=== PATIENT | female | born 1955 | race African-American/Black ===

== ENCOUNTER 2020-08-24 08:09 | Inpatient (IN) | payer MEDICAID ==
[~2020-08-24] VITALS: Ht 180.3 cm; Wt 117.9 kg
--- NOTE | 2020-08-24 08:13 | Emergency Room Report ---
History of Present Illness General Chief Complaint: Dyspnea/Respdistress Source: Patient Present Illness HPI Patient is a 64-year-old female past medical history of COPD current smoker who presents to the ER complaining of shortness of breath. Patient complains of shortness of breath and cough that began last night. Patient states that this feels like her COPD exacerbation. Patient denies any fever or chills. She denies any chest pain. She denies any nausea or vomiting. Patient was brought in from home by EMS. Patient's oxygen saturation was in the mid 80s when EMS arrived. They gave her 10 mg of albuterol prior to arrival. She states that it improved her symptoms. 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 - X 1 MONTH Nursing Documentation-[facility] Past Medical History: No History, Except For Hx Asthma: Yes Hx COPD: Yes Review of Systems All Other Systems: negative except mentioned in HPI Physical Exam Vital Signs Date Time Temp Pulse Resp B/P (MAP) Pulse Ox O2 Delivery O2 Flow Rate FiO2 08/24/20 08:01 98.1 97 20 230/120 (156) 100 Simple Mask 8.0 Sp02 EP Interpretation: abnormal - Hypoxic on room air General Appearance: alert, GCS 15, non-toxic, mild distress Head: normocephalic, atraumatic Eyes: bilateral eye normal inspection, bilateral eye PERRL ENT: hearing grossly normal, normal pharynx, no angioedema, normal voice Neck: full range of motion, supple/symm/no masses Respiratory: respiratory distress, rhonchi, other - Tachypneic Cardiovascular #1: tachycardia Gastrointestinal: non tender, soft, overweight Rectal: deferred Musculoskeletal: normal inspection, normal range of motion, no calf tenderness, no lower extremity edema Neurologic: sign installer III-XII nml as tested, oriented x3 Psychiatric: no suicidal/homicidal ideation Skin: no rash Lymphatic: no adenopathy Procedures Critical Care Time Critical Care Time Total critical care time: Approximately 35 minutes. Due to a high probability of clinically significant, life threatening deterioration, the patient required my highest level of preparedness to intervene emergently and I personally spent this critical care time directly and personally managing the patient. This critical care time included obtaining a history; examining the patient; pulse oximetry; ordering and review of studies; arranging urgent treatment with development of a management plan; evaluation of patient's response to treatment; frequent reassessment; and, discussions with other providers.This critical care time was performed to assess and manage the high probability of imminent, life- threatening deterioration that could result in multi-organ failure. It was exclusive of separately billable procedures and treating other patients and teaching time. Please see MDM section and the rest of the note for further information on patient assessment and treatment. Medical Decision Making Diagnostic Impression: Primary Impression: COPD exacerbation Additional Impressions: Malignant hypertension Hypokalemia Hypocalcemia ER Course Patient's initial blood pressure was 230/120. Patient denies any history of elevated blood pressure. I gave her 10 mg of IV hydralazine. Repeat blood pressure now 155/87. Patient was tachypneic with diffuse wheezes and hypoxic. Patient has been placed on BiPAP at a rate of 26. Patient has been given IV steroids, nebulizer treatments and antibiotics. Patient is mildly hypokalemic with potassium of 3.2. 20 mEq of IV potassium chloride have been ordered. Patient is also hypocalcemic with calcium of 6.7. 1 g of IV calcium gluconate has been ordered as well. Patient will be admitted for further treatment and evaluation. EKG Diagnostic Results Troponin ordered: Yes When was troponin ordered?: Aug 24, 2020 EKG Time: 08:16 EP Interpretation: Jackie Schwarz MD Rate: normal - 92 bpm Rhythm: NSR ST Segments: no acute changes ASA given to the pt in ED: No Rhythm Strip Diag. Results Rhythm Strip Time: 08:25 EP Interpretation: yes - Jackie Schwarz MD Rate: 89 bpm Rhythm: NSR, no PVC's, no ectopy Chest X-Ray Diagnostic Results Chest X-Ray Diagnostic Results : Chest X-Ray Ordered: Yes # of Views/Limited/Complete: 1 View Indication: Shortness of Breath EP Interpretation: Yes Interpretation: no consolidation, no effusion, no pneumothorax, no acute cardiopulmonary disease Impression: No acute disease Electronically Signed by: Jackie Schwarz MD Last Vital Signs Date Time Temp Pulse Resp B/P (MAP) Pulse Ox O2 Delivery O2 Flow Rate FiO2 08/24/20 08:01 98.1 97 20 230/120 (156) 100 Simple Mask 8.0 Disposition: ADMITTED INPATIENT - SDU Condition: Critical Physician Consult: Dr. Jackson at 915am Additional Instructions: Please note that this report is being documented using Nephera technology. This can lead to erroneous entry secondary to incorrect interpretation by the dictating instrument. Jackie Schwarz M.D. Aug 24, 2020 08:12
[2020-08-24] MEDS ORDERED: Cefepime HCl 2 GM in D5W 55 ML IVPB ONE (08:15)
[2020-08-24] MEDS ORDERED: Azithromycin 500 MG in NS 275 ML IV ONE (08:15)
[2020-08-24] MEDS ORDERED: dexAMETHasone 10mg/ml Inj IV ONE ×2 (08:15→08:17)
[2020-08-24] MEDS ORDERED: Azithromycin 500mg Inj ONE (08:17)
[2020-08-24] MEDS ORDERED: Cefepime 2gm ONE (08:17)
[2020-08-24 08:30] VITALS: BP 230/120
--- NOTE | 2020-08-24 08:30 | NUR ---
ED Nurse Note: Pt was brought in by ambulance from home d/t shortness of breath since last night noted with audible wheezes, per ems, pt was satting 80% at RA, pt was placed on a mask with 8LPM satting at 100%. Pt is AOx4, cooperative to care, restless, uses accessory muscles upon breathing, with hx of asthma and COPD. pt was placed on bed and gown; hooked to school lunch monitor.
--- NOTE | 2020-08-24 08:37 | NUR ---
ED Nurse Note: RT at bedside.
[2020-08-24 08:55] LABS: ANION GAP 5 mmol/L (5-15); BLOOD UREA NITROGEN 18 mg/dL (7-18); CALCIUM 6.7 MG/DL (8.5-10.1); CARBON DIOXIDE 27 MMOL/L (21-32); CHLORIDE 112 MMOL/L (98-107); CREATININE 0.9 MG/DL (0.55-1.30); POTASSIUM 3.2 MMOL/L (3.5-5.1); SODIUM 144 MMOL/L (136-145)
--- NOTE | 2020-08-24 08:57 | NUR ---
RESPIRATORY NOTES PT placed on bipap - 15/5, 35%, BR 22 PT's SaO2 - 99% Will continue to monitor.
[2020-08-24] MEDS: Albuterol/Ipratropium 3ml neb HHN SCH ×5 (09:00→09:57)
[2020-08-24 09:05] LABS: ALANINE AMINOTRANSFERASE 7 U/L (12-78); ALBUMIN 2.5 G/DL (3.4-5.0); ALBUMIN/GLOBULIN RATIO 0.7 (1.0-2.7); ALKALINE PHOSPHATASE 82 U/L (46-116); ASPARTATE AMINO TRANSFERASE 14 U/L (15-37); BASOPHILS % (AUTO) 1.6 % (0.0-2.0); BILIRUBIN,TOTAL 0.2 MG/DL (0.2-1.0); EOSINOPHILS % (AUTO) 12.5 % (0.0-3.0); HEMATOCRIT 38.5 % (37.0-47.0); HEMOGLOBIN 12.7 G/DL (12.0-16.0); LYMPHOCYTES % (AUTO) 31.5 % (20.0-45.0); MEAN CORPUSCULAR VOLUME 84 FL (80-99); MONOCYTES % (AUTO) 8.3 % (1.0-10.0); PLATELET COUNT 162 K/UL (150-450); RED BLOOD COUNT 4.56 M/UL (4.20-5.40); RED CELL DISTRIBUTION WIDTH 18.3 % (11.6-14.8); WHITE BLOOD COUNT 6.8 K/UL (4.8-10.8)
[2020-08-24 09:12] LABS: INR 0.9 (0.9-1.1)
[2020-08-24] MEDS ORDERED: Calcium Gluconate 1gm/50ml 50 ML IVPB ONE (09:15)
[2020-08-24] MEDS ORDERED: Albuterol/Ipratropium 3ml neb ONE (09:56)
[2020-08-24] MEDS ORDERED: Albuterol/Ipratropium 3ml neb HHN PRN (10:00)
[2020-08-24] MEDS ORDERED: Morphine Sulfate 2mg/ml Inj(IV/IM USE ONLY) IVP PRN ×2 (10:00)
--- NOTE | 2020-08-24 10:21 | History and Physical ---
History of Present Illness General Date patient seen: Aug 24, 2020 Reason for Hospitalization: Dyspnea/Respdistress Present Illness HPI 64-year-old female past medical history of COPD current active smoker who presents to the ER complaining of shortness of breath. She complains of sh ortness of breath and cough that began last night. Patient states that this feels like her COPD exacerbation ( previously had it ) Patient denies any fever or chills. She denies any chest pain. She denies any nausea or vomiting. Patient was brought in from home by EMS. Patient's oxygen saturation was in the mid 80s when EMS arrived. They gave her 10 mg of albuterol prior to arrival. She states that it improved her symptoms.In the ER, she was started on Bipap, noted to be hypertensive 200 mmHg SBP and Hydralazine 10 mg IV given with response to the 150's SBP range, K 3.2 and repleted, IV dexamethasone 10 mg x 1. Admission is requested. The patient was started on Bipap 06/24 due to respiratory distress and hypoxia. Currently tolerating well. She reports having 2-3 cig per day and last COPD exacerbation 3 weeks ago was treated with a course of steroids by her PCP. She has HHN and uses Albuterol at home. Denies prior intubations due to COPD Allergies: Coded Allergies: No Known Allergies (Unverified , 08/24/20) COVID-19 Screening Contact w/high risk pt: No Experienced COVID-19 symptoms?: No Medication History Miscellaneous Medications [No Home Meds], (Reported) Patient History Healthcare decision maker Resuscitation status Advanced Directive on File Review of Systems All Other Systems: negative except mentioned in HPI Physical Exam General Appearance: WD/WN HEENT: normocephalic, atraumatic Neck: non-tender Respiratory/Chest: chest wall non-tender, respiratory distress, decreased breath sounds, expiratory wheezing, inspiratory wheezing Cardiovascular/Chest: normal rate Abdomen: soft Extremities: non-tender Skin Exam: normal pigmentation 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: 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 operator II-XII grossly normal Musculoskeletal: normal muscle bulk Last 24 Hour Vital Signs Date Time Temp Pulse Resp B/P (MAP) Pulse Ox O2 Delivery O2 Flow Rate FiO2 08/24/20 08:54 87 25 99 35 08/24/20 08:30 97 20 Simple Mask 8.0 08/24/20 08:30 98.1 20 230/120 100 Simple Mask 8.0 08/24/20 08:18 230/120 08/24/20 08:01 98.1 97 20 230/120 (156) 100 Simple Mask 8.0 Laboratory Tests Test 08/24/20 08:15 08/24/20 08:20 Arterial Blood pH 7.340 (7.350-7.450) Arterial Blood Partial Pressure CO2 49.6 mmHg (35.0-45.0) H Arterial Blood Partial Pressure O2 62.6 mmHg (75.0-100.0) L Arterial Blood HCO3 26.2 mmol/L (22.0-26.0) H Arterial Blood Oxygen Saturation 90.3 % (95-100) L Arterial Blood Base Excess -0.2 (-2-2) Kamaljit Test Positive White Blood Count 6.8 K/UL (4.8-10.8) Red Blood Count 4.56 M/UL (4.20-5.40) Hemoglobin 12.7 G/DL (12.0-16.0) Hematocrit 38.5 % (37.0-47.0) Mean Corpuscular Volume 84 FL (80-99) Mean Corpuscular Hemoglobin 27.9 PG (27.0-31.0) Mean Corpuscular Hemoglobin Concent 33.0 G/DL (32.0-36.0) Red Cell Distribution Width 18.3 % (11.6-14.8) H Platelet Count 162 K/UL (150-450) Mean Platelet Volume 8.7 FL (6.5-10.1) Neutrophils (%) (Auto) 46.0 % (45.0-75.0) Lymphocytes (%) (Auto) 31.5 % (20.0-45.0) Monocytes (%) (Auto) 8.3 % (1.0-10.0) Eosinophils (%) (Auto) 12.5 % (0.0-3.0) H Basophils (%) (Auto) 1.6 % (0.0-2.0) Prothrombin Time 10.0 SEC (9.30-11.50) Prothromb Time International Ratio 0.9 (0.9-1.1) Activated Partial Thromboplast Time 26 SEC (23-33) Sodium Level 144 MMOL/L (136-145) Potassium Level 3.2 MMOL/L (3.5-5.1) L Chloride Level 112 MMOL/L (98-107) H Carbon Dioxide Level 27 MMOL/L (21-32) Anion Gap 5 mmol/L (5-15) Blood Urea Nitrogen 18 mg/dL (7-18) Creatinine 0.9 MG/DL (0.55-1.30) Estimat Glomerular Filtration Rate > 60 mL/min (>60) Glucose Level 121 MG/DL (74-106) H Lactic Acid Level 1.70 mmol/L (0.4-2.0) Calcium Level 6.7 MG/DL (8.5-10.1) L Magnesium Level 1.8 MG/DL (1.8-2.4) Total Bilirubin 0.2 MG/DL (0.2-1.0) Aspartate Amino Transf (AST/SGOT) 14 U/L (15-37) L Alanine Aminotransferase (ALT/SGPT) 7 U/L (12-78) L Alkaline Phosphatase 82 U/L (46-116) Troponin I 0.011 ng/mL (0.000-0.056) Pro-B-Type Natriuretic Peptide 71 pg/mL (0-125) Total Protein 5.9 G/DL (6.4-8.2) L Albumin 2.5 G/DL (3.4-5.0) L Globulin 3.4 g/dL Albumin/Globulin Ratio 0.7 (1.0-2.7) L Microbiology Date/Time Source Procedure Growth Status 08/24/20 08:20 Nasopharynx SARS-CoV-2 RdRp Gene Assay - Final Complete 08/24/20 08:20 Nasal Nares - Final Complete 08/24/20 08:20 Nasal Nares - Final Complete Height (Feet): 5 Height (Inches): 8.00 Weight (Pounds): 230 Medications Current Medications Medications (Trade) Dose Ordered Sig/Roselyn Route PRN Reason Start Time Stop Time Status Last Admin Dose Admin Albuterol/ Ipratropium (Albuterol/ Ipratropium) 3 ml Q15M HHN 08/24/20 08:15 08/29/20 08:14 08/24/20 09:57 Calcium Gluconate/ Sodium Chloride 50 ml @ 50 mls/hr ONCE ONCE IVPB 08/24/20 09:15 12/5/20 10:14 08/24/20 09:41 Potassium Chloride 100 ml @ 100 mls/hr Q1HR IVPB 08/24/20 10:00 08/24/20 11:59 Assessment/Plan Status: not improved Assessment/Plan: 64 year old obese female with prior history of COPD and smoker admitted to the Hospital due to: # Acute respiratory failure due to COPD exacerbation vs underlying pneumonia Steroids started in ER Cefepime and Azithromycin IV HHN bronchodilator therapy Pulmonary consultation Oxygen support with Bipap as need and NC O2 titration as tolerated # HTN Start Hydralazine 25 mg BID PRN Hydralazine > 160 mmHg Monitor response to therapy #Hypokalemia Repleted Monitor in AM - telemetry # Obesity BMI 30-40 Dietary education # Nicotine dependence Counseling provided Resources for discontinuation [id number] will be provided DVT ppx GI ppx Diet Cardiac Actv as tolerated FULL CODE Reji Jackson MD Aug 24, 2020 10:21
[2020-08-24] MEDS: Enoxaparin 40mg Inj SUBQ SCH (12:23)
--- NOTE | 2020-08-24 12:32 | NUR ---
ED Nurse Note: lunch tray offered to pt.
[2020-08-24 12:42] LABS: APPEARANCE,URINE CLEAR; BILIRUBIN, URINE NEGATIVE (NEGATIVE); COLOR,URINE PALE YELLOW; GLUCOSE, URINE (UA) NEGATIVE (NEGATIVE); KETONES,URINE NEGATIVE (NEGATIVE); NITRITE,URINE NEGATIVE (NEGATIVE); PH,URINE 6 (4.5-8.0); PROTEIN,URINE NEGATIVE (NEGATIVE); UROBILINOGEN,URINE NORMAL MG/DL (0.0-1.0)
--- NOTE | 2020-08-24 12:45 | NUR ---
ED Nurse Note: pt able to urinate on a commode, sample collected, sent to lab
--- NOTE | 2020-08-24 12:51 | NUR ---
ED Nurse Note: Hand off given to Janay JACOB.
--- NOTE | 2020-08-24 12:55 | NUR ---
ED Nurse Note: Dr. Muniz at pt bedside assessing pt
[2020-08-24 12:58] VITALS: BP 165/84
[2020-08-24 13:00] LABS: LEUKOCYTE ESTERASE ,URINE 2+ (NEGATIVE)
--- NOTE | 2020-08-24 13:04 | NUR ---
ED Nurse Note: pt received from Teodora Kent RN. pt is resting in bed, bi-pap d/c'd by RT, pt's saturation remains between 91%-93%. pt was able to tolerate 100% of lunch tray and also an additional sandwich, no acute distress is noted at this time. pt has IV fluids and potassium infusing into L hand IV site per MD orders. pt provided with blankets and pillows for comfort. will continue to monitor and prepare for admission
--- NOTE | 2020-08-24 13:05 | NUR ---
RESPIRATORY NOTES PT taken off bipap so she may eat, as requested by her. PT's SaO2 ~93%. PT will be placed back on bipap, shortly after eating. RN aware. Will continue to monitor.
--- NOTE | 2020-08-24 13:30 | Consultation ---
DATE OF CONSULTATION: 08/24/2020 PULMONARY CONSULTATION HISTORY OF PRESENT ILLNESS: This is a 64-year-old female with history of active tobacco usage as well as substance abuse/use and COPD who came to the hospital shortness of breath. Overnight, she was seen and placed on a BiPAP. She is still reporting cough and congestion. The patient was hypoxic on arrival. She received albuterol and also was placed on BiPAP. The patient also markedly hypertensive and required hydralazine. At this time, her COVID-19 testing has been obtained and is negative for rapid gene assay, PAST MEDICAL HISTORY: Notable for COPD, substance use and abuse, COVID-19 testing negative last month. HOME MEDICATIONS: The patient unable to recall. SOCIAL HISTORY: She admits to marijuana, tobacco, as well as other substances. REVIEW OF SYSTEMS: Denies any headaches, hematemesis, melena, or hematochezia. PHYSICAL EXAMINATION: GENERAL: Reveals a 64-year-old female. VITAL SIGNS: Blood pressure is 230/120, now it is measured as 170/90, heart rate is 84, respirations are 22, she is on a BiPAP, O2 saturations are 99% on 8 liters through BiPAP. HEENT: Unremarkable. CHEST: Bilateral rhonchi. ABDOMEN: Soft. EXTREMITIES: There is 1+ edema. LABORATORY DATA: Lab testing shows normal CBC and BMP with exception of potassium 3.2, glucose 120. Lactic acid 1.7. Coags are negative. Urinalysis pending. X-ray chest per ER report shows clear lung haque bilaterally. IMPRESSION: 1. Exacerbation of COPD. 2. Substance use and abuse. 3. Hypertension. 4. Hypokalemia. DISCUSSION: Admit to the hospital. The patient will need IV steroids, broad-spectrum antibiotics, pulmonary hygiene. We will continue BiPAP for now. Cardiac diet. We will follow carefully. Viraj Muniz M.D. DR: Fanta JOB#: [id number] CC:
--- NOTE | 2020-08-24 13:30 | NUR ---
ED Nurse Note: pt c/o SOB, RT notified, will place pt back on bi-pap. Dr. Jackson at assessing pt
--- NOTE | 2020-08-24 13:40 | NUR ---
RESPIRATORY NOTES PT placed back onto bipap, following eating. RN Janay aware. Will continue to monitor.
[2020-08-24 14:18] VITALS: BP 175/89
--- NOTE | 2020-08-24 14:18 | NUR ---
ED Nurse Note: pt is reporting pain, will give standing med order for pain. pt given hydralazine IV for BP if 175/89
[2020-08-24] MEDS ORDERED: NO HOME MEDS (14:31)
[2020-08-24 15:00] VITALS: BP 157/71
--- NOTE | 2020-08-24 15:01 | NUR ---
ED Nurse Note: pt's BP recheck: 157/71
--- NOTE | 2020-08-24 15:25 | NUR ---
ED Nurse Note: pt taking off Bi-Pap mask to talk on phone, saturation decreases to 91%, pt asked to keep mask on but she keeps taking it off, risks of low saturation explained to pt, she continues to have phone conversations and taking bi-pap mask off
--- NOTE | 2020-08-24 15:48 | NUR ---
ED Nurse Note: report given to CECIL Freire
[2020-08-24 17:01] VITALS: BP 140/77
[2020-08-24] MEDS ORDERED: AMBIEN CR6.25 MG ORAL (17:23)
[2020-08-24] MEDS: Cefepime HCl 2 GM in D5W 55 ML IVPB SCH (17:45)
[2020-08-24] MEDS: HydrALAZINE 25mg tab ORAL SCH (18:53)
--- NOTE | 2020-08-24 19:20 | NUR ---
NURSE NOTES: pt report received from Tani JACOB. pt is alert and oriented times 4, pt is able to follow commands. pt is on air press operator showing NSR, no acute cardiac distress noted. pt is on BIPAP sating 98% O2, SOB noted upon exertion. pt bed is low, locked, armed, call light within reach, bed rails up times 3. will follow plan of care.
--- NOTE | 2020-08-24 19:41 | NUR ---
NURSE HAND-OFF REPORT: Important Events on Shift:new admit Patient Status: stable Diet: Low Sodium Pending Orders: Pending Results/Labs: Pending MD notification: Latest Vital Signs: Temperature 96.1 , Pulse 88 , B/P 128 /89 , Respiratory Rate 20 , O2 SAT 99 , Room Air, O2 Flow Rate 8.0 . Vital Sign Comment: EKG Rhythm: Sinus Rhythm Rhythm change?: MD Notified?: - MD Response: Latest Rojas Fall Score: 70 Fall Risk: High Risk Safety Measures: Call light Within Reach, Bed Alarm Zone 2, Side Rails Side Rails x2, Bed position Low and Locked. Fall Precautions: Patient Fall Education Report given to CECIL Campoverde.
[2020-08-24 20:00] VITALS: BP 149/83
[2020-08-24] MEDS: Solu-MEDROL 40mg Inj IVP SCH (21:06)
--- NOTE | 2020-08-24 21:48 | NUR ---
NURSE NOTES: connected pts room phone. pt ate 100% dinner.
--- NOTE | 2020-08-24 23:29 | NUR ---
NURSE NOTES: repositioned pt. secured BIPAP face mask.
[2020-08-25] VITALS: BP 147/92
[2020-08-25] MEDS: Cefepime HCl 2 GM in D5W 55 ML IVPB SCH ×2 (00:01→08:24)
--- NOTE | 2020-08-25 01:44 | NUR ---
NURSE NOTES: pt resing comfortably in bed. BIPAP still on 10/5 35% FiO2. pt vital signs stable.
--- NOTE | 2020-08-25 03:45 | NUR ---
NURSE NOTES: replaced pts TKO NS bag. pt resting comfortably in bed. BIPAP on, working. pt sating 99% O2.
[2020-08-25 04:00] VITALS: BP 152/86
[2020-08-25] MEDS: Solu-MEDROL 40mg Inj IVP SCH ×2 (05:47→14:00)
[2020-08-25 05:57] LABS: HEMATOCRIT 37.7 % (37.0-47.0); HEMOGLOBIN 12.1 G/DL (12.0-16.0); MEAN CORPUSCULAR VOLUME 86 FL (80-99); PLATELET COUNT 192 K/UL (150-450); RED BLOOD COUNT 4.36 M/UL (4.20-5.40); RED CELL DISTRIBUTION WIDTH 17.8 % (11.6-14.8); WHITE BLOOD COUNT 8.2 K/UL (4.8-10.8)
[2020-08-25 06:44] LABS: ALANINE AMINOTRANSFERASE 17 U/L (12-78); ALBUMIN 3.2 G/DL (3.4-5.0); ALBUMIN/GLOBULIN RATIO 0.7 (1.0-2.7); ALKALINE PHOSPHATASE 99 U/L (46-116); ANION GAP 4 mmol/L (5-15); ASPARTATE AMINO TRANSFERASE 13 U/L (15-37); BILIRUBIN,TOTAL 0.1 MG/DL (0.2-1.0); BLOOD UREA NITROGEN 21 mg/dL (7-18); CALCIUM 9.2 MG/DL (8.5-10.1); CARBON DIOXIDE 30 MMOL/L (21-32); CHLORIDE 103 MMOL/L (98-107); POTASSIUM 4.7 MMOL/L (3.5-5.1); SODIUM 137 MMOL/L (136-145)
--- NOTE | 2020-08-25 07:00 | NUR ---
NURSE HAND-OFF REPORT: Important Events on Shift:[NA] Patient Status: [STABLE] Diet: [low sodium] Pending Orders: [NA] Pending Results/Labs:[NA] Pending MD notification:[NA] Latest Vital Signs: Temperature 97.5 , Pulse 84 , B/P 152 /86 , Respiratory Rate 18 , O2 SAT 99 , Bi-pap, O2 Flow Rate 8.0 . Vital Sign Comment: [stable] EKG Rhythm: Sinus Rhythm Rhythm change?: N MD Notified?: - MD Response: Latest Roajs Fall Score: 70 Fall Risk: High Risk Safety Measures: Call light Within Reach, Bed Alarm Zone 3, Side Rails Side Rails x3, Bed position Low and Locked. Fall Precautions: Patient Fall Education Report given to [Maximilian Robins].
--- NOTE | 2020-08-25 07:30 | NUR ---
NOTES: Received pt from CECIL Campoverde, pt is awake and alert, pt has Bi pap 10/5 fio2 35%, pt has intact iv access 20g SL. Pt is on continues heart monitoring. no complain of pain at this moment, pt asking to go home, Dr Jackson is aware and he will be here in one hour, pt is aware. all needs attended, bed is locked and is in the lowest position, call light within easy reach. will continue to monitor.
[2020-08-25 08:00] VITALS: BP 167/82
[2020-08-25] MEDS: HydrALAZINE 25mg tab ORAL SCH (08:24)
[2020-08-25] MEDS: Enoxaparin 40mg Inj SUBQ SCH (08:25)
--- NOTE | 2020-08-25 08:41 | NUR ---
NURSE NOTES: Dr Muniz is aware about ABG results, no new order received, MD will F/U with Dr Muniz. will continue to monitor.
[2020-08-25] MEDS ORDERED: Azithromycin 500 MG in NS 275 ML IV SCH (09:00)
[2020-08-25 10:00] VITALS: BP 155/69
--- NOTE | 2020-08-25 11:03 | Discharge Instructions ---
Discharge Instructions Discharge Instructions Diet: 2 GM sodium (low sodium) Resume Normal Activity?: Yes Special Instructions Do not smoke Take all your medication including Z pack and Medrol dose pack - MDI albuterol prescribed For Surgical Patients Contact your physician for: other - increasing work of breathing For Congestive Heart Failure Reminder Report to your physician any weight gain of 5 pounds or more in one week. Reji Jackson MD Aug 25, 2020 11:03
--- NOTE | 2020-08-25 11:08 | Discharge Summary ---
Discharge Summary Hospital Course Date of Admission Aug 24, 2020 at 08:59 Date of Discharge 08/25/2020 Admitting Diagnosis COPD EXACEBRATION HPI Isabella Nur is a 64 year old female who was admitted on Aug 24, 2020 at 08:59 for Chronic Obstructive Pulmonary Disease Exacerbation Hospital Course 64 year old obese female with prior history of COPD and smoker admitted to the Hospital due to: # Acute respiratory failure due to COPD exacerbation vs underlying pneumonia Steroids started in ER Cefepime and Azithromycin IV were started along with HHN bronchodilator therapy Pulmonary consultation completed with Dr. Muniz. Oxygen support with Bipap as need and NC O2 titration as tolerated. Day 2 the patient felt back to her baseline and requested to go home. She is ambulatory and oxygenation is > 92 % without any Oxygen. She will be given Rx for Z pack, Medrol dose pack and MDI Albuterol. # HTN Start Hydralazine 25 mg BID Recommend follow up with PCP in 1-2 weeks #Hypokalemia Repleted and resolved now. # Obesity BMI 30-40 Dietary education # Nicotine dependence Counseling provided Resources for discontinuation [id number] will be provided Discharge Medications Continued Medications: Zolpidem Tartrate (Ambien Cr) 6.25 Mg Tab.mphase 6.25 MG ORAL BEDTIME PRN for Insomnia, TAB 0 Refills Discontinued Medications: [No Home Meds] () Discharge Condition Upon Discharge: stable Discharge Vital Signs Last Vital Signs Date Time Temp Pulse Resp B/P (MAP) Pulse Ox O2 Delivery O2 Flow Rate FiO2 08/25/20 08:24 167/82 08/25/20 08:00 96.6 87 20 93 08/25/20 08:00 Bi-pap 08/25/20 08:00 35 08/24/20 15:55 8.0 Discharge Disposition Patient was discharged to home Discharge Diagnoses: (1) Hypertension (2) COPD exacerbation Discharge Instructions For Surgical Patients Contact your physician for: other - increasing work of breathing Reji Jackson MD Aug 25, 2020 11:08
[2020-08-25] MEDS ORDERED: HYDRALAZINE HCL50 MG ORAL (11:52)
[2020-08-25] MEDS ORDERED: MEDROL DOSEPAK4 MG ORAL (11:53)
[2020-08-25] MEDS ORDERED: AZITHROMYC200 MG/5 M ORAL (11:54)
[2020-08-25 12:45] VITALS: BP 143/63
--- NOTE | 2020-08-25 12:55 | NUR ---
NURSE NOTES: pt has discharge order, all D/C assessments and instructions done and pt verbally confirmed to understand all. pt is stable, V/S stable, spo2 93% on RA, Dr Jackson is aware, pt has prescription and she is taking it to her own pharmacy. D/C instruction from Dr Jackson is printed and given to pt and explained to her and pt verbally confirmed to understand all. per pt her granddaughter is coming to pick her up 1300. pt is off from tele box, iv access D/C, all belongings checked with RN and are with pt and pt signed consent form. pt is getting ready. waiting for granddaughter to pick pt up.
--- NOTE | 2020-08-25 14:04 | Pulmonology Progress Note ---
Subjective Interval Events: none new Allergies: Coded Allergies: No Known Allergies (Unverified , 08/24/20) Subjective pt feels better and wishes to go home Objective Last 24 Hour Vital Signs Date Time Temp Pulse Resp B/P (MAP) Pulse Ox O2 Delivery O2 Flow Rate FiO2 08/25/20 12:45 97.7 90 20 143/63 (89) 93 08/25/20 12:21 88 08/25/20 12:00 Bi-pap 08/25/20 12:00 35 08/25/20 10:00 155/69 (97) 08/25/20 08:24 167/82 08/25/20 08:00 96.6 87 20 167/82 (110) 93 08/25/20 08:00 Bi-pap 08/25/20 08:00 35 08/25/20 07:49 65 08/25/20 04:00 35 08/25/20 04:00 Bi-pap 08/25/20 04:00 85 08/25/20 04:00 97.5 84 18 152/86 (108) 99 08/25/20 03:29 97 24 99 35 08/25/20 00:00 35 08/25/20 00:00 Bi-pap 08/25/20 00:00 97.8 84 18 147/92 (110) 99 08/25/20 00:00 80 08/24/20 22:50 100 24 99 35 08/24/20 20:00 35 08/24/20 20:00 Bi-pap 08/24/20 20:00 98.2 88 18 149/83 (105) 98 08/24/20 19:22 96 08/24/20 19:04 96 28 97 35 08/24/20 18:53 128/89 08/24/20 17:03 Bi-Pap 08/24/20 17:01 96.1 88 20 140/77 (98) 99 08/24/20 16:09 97 30 96 35 08/24/20 16:09 97 30 96 Bi-Pap 35 08/24/20 15:55 98.1 22 157/71 91 Room Air 8.0 35 08/24/20 15:00 157/71 08/24/20 14:18 175/89 08/24/20 14:17 175/89 Intake and Output 08/24/20 08/25/20 18:59 06:59 Intake Total 480 ml 55 ml Balance 480 ml 55 ml Intake Oral 480 ml IV Total 55 ml # Voids 1 Objective 08/25/2020 Pt sitting up in bed talking on the phone; NAD General Appearance: WD/WN, no acute distress HEENT: normocephalic Respiratory: chest wall non-tender Cardiovascular: normal rate, regular rhythm Abdomen: other - obese Extremities: no cyanosis Microbiology Date/Time Source Procedure Growth Status 08/24/20 08:20 Nasopharynx SARS-CoV-2 RdRp Gene Assay - Final Complete 08/24/20 08:20 Nasal Nares - Final Complete 08/24/20 08:20 Nasal Nares - Final Complete Laboratory Tests 08/25/20 04:10: White Blood Count 8.2, Red Blood Count 4.36, Hemoglobin 12.1, Hematocrit 37.7, Mean Corpuscular Volume 86, Mean Corpuscular Hemoglobin 27.8, Mean Corpuscular Hemoglobin Concent 32.1, Red Cell Distribution Width 17.8H, Platelet Count 192, Mean Platelet Volume 9.1, Neutrophils (%) (Auto) , Lymphocytes (%) (Auto) , Monocytes (%) (Auto) , Eosinophils (%) (Auto) , Basophils (%) (Auto) , Differential Total Cells Counted 100, Neutrophils % (Manual) 87H, Lymphocytes % (Manual) 11L, Monocytes % (Manual) 2, Eosinophils % (Manual) 0, Basophils % (Manual) 0, Band Neutrophils 0, Platelet Estimate Adequate, Platelet Morphology Normal, Hypochromasia 1+, Anisocytosis 1+, Sodium Level 137, Potassium Level 4.7, Chloride Level 103, Carbon Dioxide Level 30, Anion Gap 4L, Blood Urea Nitrogen 21H, Creatinine 1.0, Estimat Glomerular Filtration Rate > 60, Glucose Level 142H, Calcium Level 9.2#, Phosphorus Level 3.1, Total Bilirubin 0.1L, Aspartate Amino Transf (AST/SGOT) 13L, Alanine Aminotransferase (ALT/SGPT) 17, Alkaline Phosphatase 99, C-Reactive Protein, Quantitative 1.1H, Total Protein 7.8#, Albumin 3.2L, Globulin 4.6, Albumin/Globulin Ratio 0.7L 08/25/20 08:40: Arterial Blood pH 7.355, Arterial Blood Partial Pressure CO2 49.6H, Arterial Blood Partial Pressure O2 82.4, Arterial Blood HCO3 27.1H, Arterial Blood Oxygen Saturation 94.9L, Arterial Blood Base Excess 0.9, Kamaljit Test Positive Current Medications Medications (Trade) Dose Ordered Sig/Roselyn Route PRN Reason Start Time Stop Time Status Last Admin Dose Admin Acetaminophen (Tylenol) 650 mg Q4H PRN ORAL Mild Pain (Pain Scale 1-3) 08/24/20 10:00 09/23/20 09:59 Acetaminophen (Tylenol) 650 mg Q4H PRN ORAL fever 08/24/20 10:00 09/23/20 09:59 Albuterol/ Ipratropium (Albuterol/ Ipratropium) 3 ml Q15M HHN 08/24/20 08:15 08/29/20 08:14 08/24/20 09:57 Albuterol/ Ipratropium (Albuterol/ Ipratropium) 3 ml Q6H PRN HHN Shortness of Breath 08/24/20 10:00 08/29/20 09:59 Azithromycin 500 mg/Sodium Chloride 275 ml @ 275 mls/hr DAILY IV 08/25/20 09:00 08/30/20 08:59 08/25/20 09:03 Cefepime HCl 2 gm/ Dextrose 55 ml @ 110 mls/hr Q8H IVPB 08/24/20 16:00 08/31/20 15:59 08/25/20 08:24 Dextrose (Dextrose 50%) 25 ml Q30M PRN IV Hypoglycemia 08/24/20 10:00 11/22/20 09:59 Dextrose (Dextrose 50%) 50 ml Q30M PRN IV Hypoglycemia 08/24/20 10:00 11/22/20 09:59 Enoxaparin Sodium (Lovenox) 40 mg DAILY SUBQ 08/24/20 11:00 11/22/20 10:59 08/25/20 08:25 Famotidine (Pepcid I.v.) 20 mg Q12HR IVP 08/24/20 21:00 09/23/20 20:59 08/25/20 08:25 Hydralazine HCl (Apresoline) 10 mg Q4H PRN IV sbp ABOVE 160mmHG 08/24/20 10:15 11/22/20 10:14 08/24/20 14:17 Hydralazine HCl (Apresoline) 25 mg BID ORAL 08/24/20 18:00 11/22/20 17:59 08/25/20 08:24 Methylprednisolone Sodium Succinate (Solu-MEDROL) 40 mg EVERY 8 HOURS IVP 08/24/20 22:00 11/22/20 21:59 08/25/20 05:47 Morphine Sulfate (Morphine Sulfate) 1 mg Q4H PRN IVP Mild Pain (Pain Scale 1-3) 08/24/20 10:00 08/31/20 09:59 08/24/20 14:23 Morphine Sulfate (Morphine Sulfate) 2 mg Q4H PRN IVP Moderate Pain (Pain Scale 4-6) 08/24/20 10:00 08/31/20 09:59 Ondansetron HCl (Zofran) 4 mg Q6H PRN IVP Nausea & Vomiting 08/24/20 10:00 09/23/20 09:59 Temazepam (Restoril) 15 mg DAILYPRN PRN ORAL Insomnia 08/24/20 10:00 08/31/20 09:59 Assessment/Plan Assessment/Plan 1. Exacerbation of COPD. - s/p BiPAP - Rx for Z pack, Medrol dose pack and MDI Albuterol per Dr. Jackson - [place] against tobacco use 2. Substance use and abuse. 3. Hypertension. - cardiac diet 4. Hypokalemia. - normalized dc planning The care for this patient was discussed with my supervising physician. Seen and examined by Dr. Muniz as well Time spent for this case was approximately 31 minutes Yonathan Rodríguez Aug 25, 2020 14:04 Viraj Muniz MD Aug 25, 2020 17:02
--- NOTE | 2020-08-25 14:46 | NUR ---
NURSE NOTES: pt is stable, V/S stable, aspo2 94 in RA, no stress noted. pt left hospital with accompany granddaughter.
--- NOTE | 2020-08-26 09:33 | Diagnostic Imaging Report ---
EXAM: XR Chest, 1 View CLINICAL HISTORY: Shortness of breath TECHNIQUE: Frontal view of the chest. COMPARISON: No relevant prior studies available. FINDINGS: Lungs: Unremarkable. The lungs appear clear. No focal consolidation. Pleural space: Unremarkable. The costophrenic angles are sharp. No visible pneumothorax. Heart: Unremarkable. No cardiomegaly. Mediastinum: Unremarkable. Bones/joints: Unremarkable. Tubes, lines and devices: Telemetry leads overlie the thorax. IMPRESSION: No acute radiographic findings.
--- NOTE | 2020-08-27 11:56 | NUR ---
INSURANCE CLINICALS/ DC SUMMARY/INSTRUCTIONS/HP FAXED TO [facility] (08/24-08/25) FX [phone]
== END 2020-08-25 14:45 | disposition home or self-care (01) | DRG 140 ==
LOC: EDBD 08:09 → EMR 08:29 → EDBEDREQ 08:43 → 2W 08:59 → EDBEDREQ 13:38 → 2W 15:17
DX: J44.0 Chronic obstructive pulmonary disease with (acute) lower respiratory infection (principal); J18.9 Pneumonia, unspecified organism; J44.1 Chronic obstructive pulmonary disease with (acute) exacerbation; J96.00 Acute respiratory failure, unspecified whether with hypoxia or hypercapnia; I10 Essential (primary) hypertension; E87.6 Hypokalemia; E66.9 Obesity, unspecified; F17.200 Nicotine dependence, unspecified, uncomplicated; F19.10 Other psychoactive substance abuse, uncomplicated
CPT/HCPCS: 36415; 71045; 80053; 81003; 82803; 83605; 83735; 83880; 84100; 84484; 85007; 85025; 85610; 85730; 86140; 86710; 87040; 94640; 94660; 94664; 96361; 96365; 96367; 96375; 99291; J7030; J7620; U0002